=== PATIENT | female | born 1955 | race Caucasian/White ===

== ENCOUNTER 2020-11-27 10:19 | Inpatient (IN) | payer BC ==
[~2020-11-27] VITALS: Ht 170.2 cm; Wt 98.3 kg
[2020-11-27 11:24] LABS: Troponin I <0.015 ng/mL (0.000-0.040)
[2020-11-27 11:37] LABS: Alanine Aminotransfer (ALT/SGP 69 U/L (12-78); Albumin, Blood 3.3 g/dL (3.4-5.0); Albumin/Globulin Ratio 0.7 (0.8-1.8); Alk Phos 70 U/L (50-136); Aspartate Aminotrans (AST/SGOT 95 U/L (12-37); Bilirubin, Total 0.7 mg/dL (0.1-1.0); Blood Urea Nitrogen 21 mg/dL (8-24); Bun/Creatinine Ratio 21.1 (12.0-20.0); CO2, Blood 30 mmol/L (21-32); Calcium, Blood 8.8 mg/dL (8.5-10.1); Chloride, Blood 74 mmol/L (98-108); Globulin, Blood 4.5 g/dL (2.2-4.0); Glomerular Filtration Rate 60 (60-); Glucose, Blood 109 mg/dL (70-99); Phosphorus, Blood 2.3 mg/dL (2.5-4.9); Total Protein, Blood 7.8 g/dL (6.4-8.2)
[2020-11-27 11:39] LABS: Anion Gap 12 mmol/L (6-16); Potassium, Blood 1.9 mmol/L (3.5-5.5); Sodium, Blood 116 mmol/L (136-145)
[2020-11-27 11:43] LABS: Source, Urine Clean Catch
[2020-11-27 11:44] LABS: Influenza A, PCR NEGATIVE (NEGATIVE); Influenza B, PCR NEGATIVE (NEGATIVE); Resp Syncytial Virus, PCR NEGATIVE (NEGATIVE)
[2020-11-27 11:47] LABS: Bilirubin, Urine Neg (Neg); Blood, Urine 2+ (Neg); Glucose Qualitative, Urine Neg (Neg); Ketones, Urine Neg (Neg); Leukocyte Esterase, Urine Neg (Neg); Nitrite, Urine Neg (Neg); Protein, Urine 2+ (Neg); Specific Gravity, Urine 1.015 (1.003-1.022); Urobilinogen, Urine NORM (Normal); pH, Urine 6.5 (5.0-8.0)
[2020-11-27 11:54] LABS: Appearance, Urine Clear (Clear); Color, Urine Yellow (P-Yellow)
[2020-11-27 11:58] LABS: Bacteria Few /hpf; Mucus Light (0-Heavy); Red Blood Cells, Urine 0-2 /hpf (0-2); Squamous Epithelial Cells Few /hpf (Few); White Blood Cells, Urine 0-2 /hpf (0-5)
[2020-11-27 11:59] LABS: Renal Epithelial Rare /hpf (0-Rare)
[2020-11-27 12:00] LABS: SARS-Cov-2 (COVID-19) PCR, MMC POSITIVE (NEGATIVE)
[2020-11-27 12:01] LABS: BASOPHILS ABSOLUTE AUTO 0.02 K/mm3 (0.00-0.23); BASOPHILS PERCENT AUTO 0 % (0-2); EOSINOPHILS ABSOLUTE AUTO 0.02 K/mm3 (0.00-0.68); EOSINOPHILS PERCENT AUTO 0 % (0-6); Hematocrit 38.7 % (33.0-51.0); Hemoglobin 14.6 g/dL (11.5-16.0); IMMATURE GRAN ABSOLUTE AUTO 0.02 K/mm3 (0.00-0.10); IMMATURE GRAN PERCENT AUTO 0 % (0-1); LYMPHOCYTES ABSOLUTE AUTO 1.36 K/mm3 (0.84-5.20); LYMPHOCYTES PERCENT AUTO 18 % (21-46); MONOCYTES ABSOLUTE AUTO 0.87 K/mm3 (0.16-1.47); MONOCYTES PERCENT AUTO 11 % (4-13); Mean Corpuscular Volume 80 fL (80-100); Mean Platelet Volume 8.9 fL (9.1-12.4); NEUTROPHILS ABSOLUTE AUTO 5.43 K/mm3 (1.96-9.15); NEUTROPHILS PERCENT AUTO 70 % (41-73); Platelet Count 414 K/mm3 (150-400); RDW Coefficient Variation 13.1 % (11.7-14.2); RDW Standard Deviation 37.2 fL (35.1-46.3); Red Blood Cell Count 4.84 M/mm3 (3.80-5.20); White Blood Cell Count 7.72 K/mm3 (4.00-11.30)
[2020-11-27 12:02] LABS: Mean Corpuscular HGB Conc 36.2 g/dL (31.5-36.5)
[2020-11-27 12:05] LABS: Mean Corpuscular HGB 28.9 pg (26.0-34.0)
[2020-11-27] MEDS ORDERED: ROSUVASTATIN CA10 MG PO (14:07)
[2020-11-27] MEDS ORDERED: CARVEDILOL6.25 MG PO (14:08)
[2020-11-27] MEDS ORDERED: SYNTHROID150 MC1 PO (14:08)
[2020-11-27] MEDS ORDERED: AMLODIPINE BESY10 MG PO (14:08)
[2020-11-27] MEDS ORDERED: TOPIRAMATE ER25 MG PO (14:08)
[2020-11-27] MEDS ORDERED: CHLO25B PO (14:08)
[2020-11-27] MEDS ORDERED: Adipex-P37.5 M1 PO (14:09)
[2020-11-27] MEDS ORDERED: LOSARTAN POTAS100 M1 PO (14:09)
[2020-11-27 14:25] LABS: Anion Gap 9 mmol/L (6-16); Blood Urea Nitrogen 20 mg/dL (8-24); CO2, Blood 31 mmol/L (21-32); Calcium, Blood 8.3 mg/dL (8.5-10.1); Chloride, Blood 77 mmol/L (98-108); Creatinine, Blood 0.91 mg/dL (0.40-1.00); Glomerular Filtration Rate >60 (60-); Glucose, Blood 108 mg/dL (70-99); Potassium, Blood 2.3 mmol/L (3.5-5.5); Sodium, Blood 117 mmol/L (136-145)
--- NOTE | 2020-11-27 17:18 | NUR ---
ADMIT FROM ER TO PCU 12. ABLE TO TRANSFER FROM [facility] TO BED AND USE BEDSIDE COMMODE. PT STATES SHE IS FEELING WEAK ON HER FEET. DENIES PAIN. COMPLAINS OF SLIGHT NAUSEA BUT DENIES THE NEED FOR ZOFRAN AT THIS TIME. ON ROOM AIR SATING ABOVE 94%. TELE SHOWING SINUS WITH HR 60-70'S. DENIES CHEST PAIN. VITAL SIGNS STABLE. NS AND POTASSIUM INFUSING. CALL LIGHT AND FALL PREVENTION SAFETY REVIEWED. NEURO WNL, SLOW TO RESPOND AT TIMES. PATIENT ABLE TO TURN IN BED. DENIES SOB, COUGH OR ANY RESPIRATORY SYMPTOMS. RIGHT AC IV SIGHT. WILL CONTINUE TO MONITOR.
--- NOTE | 2020-11-27 18:41 | NUR ---
PT COMPLAINS OF NAUSEA, MEDICATED PER EMAR WITH GOOD RELIEF. SLEEPING IN BED. CALL LIGHT IN REACH. VITALS REMAIN STABLE. SEE PREVIOUS NOTE. NO ACUTE CHANGES. UP TO BSC WITH 1 PERSON ASSIST FOR SAFETY. POTASSIUM AND NS INFUSING. POTASSIUM LAB ORDERED FOR 0000 TONIGHT. WILL CONTINUE TO MONITOR AND REPORT OFF.
--- NOTE | 2020-11-27 19:05 | NUR ---
ASSUMED CARE RECEIVED REPORT FROM JENSEN PAEZ; PT A&O X 4; DENIES CHEST PAIN; VSS; O2 SATS >93 ON RA; STATES N/V HAS IMPROVED; NO DISTRESS NOTED; CALL LIGHT AND BELONGINGS IN REACH; BED IN LOWEST POSITION.
[2020-11-27 19:37] LABS: Anion Gap 11 mmol/L (6-16); Blood Urea Nitrogen 18 mg/dL (8-24); Bun/Creatinine Ratio 20.3 (12.0-20.0); CO2, Blood 26 mmol/L (21-32); Calcium, Blood 8.5 mg/dL (8.5-10.1); Chloride, Blood 84 mmol/L (98-108); Creatinine, Blood 0.89 mg/dL (0.40-1.00); Glomerular Filtration Rate >60 (60-); Glucose, Blood 92 mg/dL (70-99); Potassium, Blood 2.6 mmol/L (3.5-5.5); Sodium, Blood 121 mmol/L (136-145)
--- NOTE | 2020-11-27 21:53 | NUR ---
UPDATE PT C/O IV IN R AC; REFUSES FLUIDS TO CONTINUE DUE TO LOCATION OF IV; ON SECOND POTASSIUM BAG; NOTIFIED YESSI LAND; NEW ORDER GIVEN FOR PO POTASSIUM; PT REFUSING NS TO CONTINUE.
[2020-11-28 04:52] LABS: BASOPHILS ABSOLUTE AUTO 0.03 K/mm3 (0.00-0.23); BASOPHILS PERCENT AUTO 0 % (0-2); EOSINOPHILS PERCENT AUTO 1 % (0-6); Hematocrit 38.3 % (33.0-51.0); IMMATURE GRAN ABSOLUTE AUTO 0.04 K/mm3 (0.00-0.10); IMMATURE GRAN PERCENT AUTO 1 % (0-1); LYMPHOCYTES ABSOLUTE AUTO 1.66 K/mm3 (0.84-5.20); LYMPHOCYTES PERCENT AUTO 21 % (21-46); MONOCYTES ABSOLUTE AUTO 0.88 K/mm3 (0.16-1.47); MONOCYTES PERCENT AUTO 11 % (4-13); Mean Corpuscular Volume 81 fL (80-100); NEUTROPHILS ABSOLUTE AUTO 5.21 K/mm3 (1.96-9.15); NEUTROPHILS PERCENT AUTO 66 % (41-73); RDW Coefficient Variation 13.1 % (11.7-14.2); RDW Standard Deviation 37.9 fL (35.1-46.3); Red Blood Cell Count 4.75 M/mm3 (3.80-5.20); White Blood Cell Count 7.92 K/mm3 (4.00-11.30)
[2020-11-28 04:53] LABS: Hemoglobin 14.4 g/dL (11.5-16.0); Mean Corpuscular HGB 30.3 pg (26.0-34.0); Mean Corpuscular HGB Conc 37.6 g/dL (31.5-36.5); Mean Platelet Volume 9.1 fL (9.1-12.4); Platelet Count 260 K/mm3 (150-400)
[2020-11-28 06:07] LABS: Magnesium, Blood 2.1 mg/dL (1.6-2.4)
[2020-11-28 06:08] LABS: Alanine Aminotransfer (ALT/SGP 64 U/L (12-78); Albumin/Globulin Ratio 0.8 (0.8-1.8); Alk Phos 61 U/L (50-136); Anion Gap 7 mmol/L (6-16); Aspartate Aminotrans (AST/SGOT 69 U/L (12-37); Bilirubin, Total 0.6 mg/dL (0.1-1.0); Blood Urea Nitrogen 16 mg/dL (8-24); Bun/Creatinine Ratio 16.6 (12.0-20.0); CO2, Blood 27 mmol/L (21-32); Calcium, Blood 8.5 mg/dL (8.5-10.1); Chloride, Blood 91 mmol/L (98-108); Creatinine, Blood 0.97 mg/dL (0.40-1.00); Globulin, Blood 3.9 g/dL (2.2-4.0); Glomerular Filtration Rate >60 (60-); Glucose, Blood 84 mg/dL (70-99); Potassium, Blood 2.5 mmol/L (3.5-5.5); Sodium, Blood 125 mmol/L (136-145); Total Protein, Blood 6.9 g/dL (6.4-8.2)
--- NOTE | 2020-11-28 06:16 | NUR ---
SHIFT SUMMARY PT A&O X 4; DENIES CHEST PAIN; VSS; NSR NOTED ON TELE; O2 SATS >93 ON RA; PT INDEPENDENT TO BSC; PT REFUSED IV FLUIDS AT [facility] DUE TO BEEPING OF PUMP; POTASSIUM SWITCHED TO PO; NS GTT STOPPED PER PT REQUEST; EDUCATION OF NEED PROVIDED; CALL LIGHT IN REACH; BED IN LOWEST POSITION; WILL CONTINUE TO MONITOR CLOSELY UNTIL HAND OFF TO DAY SHIFT RN.
[2020-11-28 11:42] LABS: Adenovirus F 40/41 Not Detected (NOT DETECT); Astrovirus Not Detected (NOT DETECT); Campylobacter Sp Not Detected (NOT DETECT); Cryptosporidium Not Detected (NOT DETECT); Cyclospora Cayetanensis Not Detected (NOT DETECT); E. Coli O157 Not Detected (NOT DETECT); Entamoeba Histolytica Not Detected (NOT DETECT); Enteroaggregative E. coli-EAEC Not Detected (NOT DETECT); Enteropathogenic E. coli-EPEC Not Detected (NOT DETECT); Enterotoxigenic E. coli-ETEC Not Detected (NOT DETECT); Giardia Lamblia Not Detected (NOT DETECT); Norovirus GI/GII Not Detected (NOT DETECT); Plesiomonas Shigelloides Not Detected (NOT DETECT); Rotavirus A Not Detected (NOT DETECT); Salmonella Sp Not Detected (NOT DETECT); Sapovirus Not Detected (NOT DETECT); Shiga Toxin-prod E. coli-STEC Not Detected (NOT DETECT); Shigella/Enteroin E. coli-EIEC Not Detected (NOT DETECT); Vibrio Cholerae Not Detected (NOT DETECT); Vibrio Sp Not Detected (NOT DETECT); Yersinia Enterocolitica Not Detected (NOT DETECT)
[2020-11-28 17:51] LABS: Calcium, Blood 9.4 mg/dL (8.5-10.1); Creatinine, Blood 1.07 mg/dL (0.40-1.00); Potassium, Blood 2.9 mmol/L (3.5-5.5)
--- NOTE | 2020-11-28 19:55 | NUR ---
PT HAD CT, GOT K REPLETION AND LAB REDRAW, REPORTS INCREASING APPETITE/DIMINISHING NAUSEA AND NO PAIN, AND GOT FLUIDS. PLAN IS TO REEVALUATE LAB REPLETION AND ASSESS RESPIRATORY STABILITY.
--- NOTE | 2020-11-29 06:20 | NUR ---
SHIFT SUMMARY PT A&O X4. VSS. MONITOR SHOWS NSR, HR 60's. SPO2 > 92% ON RA. PT DENIES DIFFICULTY BREATHING. PT STATES "MY COVID SYMPTOMS HAVE JUST BEEN GI RELATED." PT REPORTS CONTINUED DIARRHEA W/ 1 LOOSE BROWN/YELLOW STOOL NOTED THIS SHIFT. CALL TO PRODUCTION QUALITY ANALYST EMERY THIS SHIFT TO REPORT K: 2.9, PRODUCTION QUALITY ANALYST EMERY W/ ORDER FOR 60 MEQ IV KCL. KCL INFUSED W/ NS GTT PER ORDERS. NO EVENTS OVER NIGHT. WILL CONTINUE TO MONITOR & PROVIDE CARE UNTIL REPORT OFF TO DAY SHIFT RN.
[2020-11-29 06:59] LABS: Hemoglobin 12.4 g/dL (11.5-16.0); Mean Corpuscular HGB 30.4 pg (26.0-34.0); Mean Corpuscular HGB Conc 36.5 g/dL (31.5-36.5); Mean Corpuscular Volume 83 fL (80-100); Mean Platelet Volume 8.7 fL (9.1-12.4); Platelet Count 342 K/mm3 (150-400); RDW Coefficient Variation 13.6 % (11.7-14.2); RDW Standard Deviation 40.8 fL (35.1-46.3); Red Blood Cell Count 4.08 M/mm3 (3.80-5.20); White Blood Cell Count 8.09 K/mm3 (4.00-11.30)
[2020-11-29 07:10] LABS: Bun/Creatinine Ratio 11.5 (12.0-20.0); Calcium, Blood 8.4 mg/dL (8.5-10.1); Creatinine, Blood 1.04 mg/dL (0.40-1.00); Potassium, Blood 3.4 mmol/L (3.5-5.5)
--- NOTE | 2020-11-29 10:42 | NUR ---
PT'S DAUGHTER MARK CALLED AND RECEIVED UPDATES ON PT'S PRESENTATION AND PLAN OF CARE. MARK REPORTS NO FURTHER QUESTIONS AT THIS TIME
--- NOTE | 2020-11-29 18:38 | NUR ---
ATTEMPTED TO CALL ASSIGNED RN. AWAITING CALL BACK FOR REPORT.
--- NOTE | 2020-11-29 19:51 | NUR ---
Pt reported significant hunger and no nausea all day. Pt's bowel movements are consolidating somewhat from yesterday. Report given via phone to JENSEN Bradley at 194. Pt set to transfer to [facility] at 1999. Pt reports no other concerns at this time.
--- NOTE | 2020-11-30 04:24 | NUR ---
SHIFT SUMMARY PCU XFER THIS SHIFT, REPORT REC FROM JENSEN MARINA @ 1929, PT XFER'D VIA W/C @ 2024, NO ACUTE CHANGES SINCE ASSUMING CARE, NO C/O ANY KIND, NO BM'S THIS SHIFT, PT SLEEPING AT THIS TIME, CALL LIGHT IN REACH, WILL CONT TO MONITOR UNTIL REPORT GIVEN TO DAY RN.
[2020-11-30 05:17] LABS: Hematocrit 34.1 % (33.0-51.0); Hemoglobin 12.2 g/dL (11.5-16.0); Mean Corpuscular HGB 30.2 pg (26.0-34.0); Mean Corpuscular HGB Conc 35.8 g/dL (31.5-36.5); Mean Corpuscular Volume 84 fL (80-100); Mean Platelet Volume 8.6 fL (9.1-12.4); Platelet Count 345 K/mm3 (150-400); RDW Coefficient Variation 13.8 % (11.7-14.2); RDW Standard Deviation 42.6 fL (35.1-46.3); Red Blood Cell Count 4.04 M/mm3 (3.80-5.20); White Blood Cell Count 9.55 K/mm3 (4.00-11.30)
[2020-11-30 05:55] LABS: Anion Gap 7 mmol/L (6-16); Blood Urea Nitrogen 12 mg/dL (8-24); Bun/Creatinine Ratio 12.6 (12.0-20.0); CO2, Blood 26 mmol/L (21-32); Calcium, Blood 8.5 mg/dL (8.5-10.1); Chloride, Blood 101 mmol/L (98-108); Creatinine, Blood 0.96 mg/dL (0.40-1.00); Glomerular Filtration Rate >60 (60-); Glucose, Blood 93 mg/dL (70-99); Potassium, Blood 3.3 mmol/L (3.5-5.5); Sodium, Blood 134 mmol/L (136-145)
[2020-11-30] MEDS ORDERED: Amoxicillin500 MG PO (11:46)
[2020-11-30] MEDS ORDERED: DEXA6 (11:47)
--- NOTE | 2020-11-30 12:58 | NUR ---
DISCHARGE NOTE PT IS AOX4. PT HAS NO IV ACCESS. THIS RN REVIEWED DC INSTRUCTIONS WITH PT WHO VERBALIZED AN UNDERSTANDING. PT GATHERED HOME BELONGINGS. PT DRESSED SELF IN HOME CLOTHING. MEDICATIONS FAXED TO [facility] IN [place]. ENHANCED ISOLATION PRECAUTIONS MAINTAINED T/O SHIFT AND AT DC. HI LIFT OPERATOR WHEELED PT OFF UNIT AND PT HAS LEFT THE BUILDING.
== END 2020-11-30 12:58 | disposition home or self-care (01) | DRG 178 ==
LOC: ER 10:19 → PCU 13:58 → MEDS 11-29 20:35 → ENPENDDIS 11-30 11:00 → MEDS 11-30 12:58
PROVIDERS: Emergency Medicine; Nurse Practitioner Acute Care; ADMIT Internal Medicine
PROC: 8E0ZXY6 Isolation (ICD-10-PCS; principal; 2020-11-27)
DX: U07.1 COVID-19 (principal); A08.39 Other viral enteritis; E87.1 Hypo-osmolality and hyponatremia; I10 Essential (primary) hypertension; Z90.5 Acquired absence of kidney; E87.6 Hypokalemia; J32.9 Chronic sinusitis, unspecified
CPT/HCPCS: 0097U; 0241U; 36415; 51798; 71045; 71250; 80048; 80053; 81001; 83690; 83735; 83930; 83935; 84100; 84132; 84145; 84300; 84443; 84484; 85025; 85027; 93005; 93010; 96365; 96366; 99285-25; A9270; C1751; J1650; J2405; J3480; J7030; J7040; P9612